=== PATIENT | female | born 1995 | race African-American/Black ===

== ENCOUNTER 2018-03-18 13:19 | Emergency (ER) | payer OTHER ==
[~2018-03-18] VITALS: Ht 165.1 cm; Wt 61.2 kg
[2018-03-18 13:26] VITALS: BP 117/90
[2018-03-18] MEDS ORDERED: Morphine Sulfate 4mg/ml Inj (IV USE ONLY) IVP ONE (13:30)
[2018-03-18] MEDS ORDERED: Isovue-300 100ml vial INJ PRN (13:30)
[2018-03-18] MEDS ORDERED: Sodium Chloride 500ML 500 ML IV ONE (13:30)
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
[2018-03-18 13:58] LABS: BASOPHILS % (AUTO) 0.5 % (0.0-2.0); HEMATOCRIT 42.8 % (37.0-47.0); HEMOGLOBIN 14.2 G/DL (12.0-16.0); LYMPHOCYTES % (AUTO) 34.1 % (20.0-45.0); MEAN CORPUSCULAR VOLUME 87 FL (80-99); MONOCYTES % (AUTO) 9.1 % (1.0-10.0); NEUTROPHILS % (AUTO) 54.3 % (45.0-75.0); PLATELET COUNT 225 K/UL (150-450); RED BLOOD COUNT 4.93 M/UL (4.20-5.40); RED CELL DISTRIBUTION WIDTH 11.3 % (11.6-14.8); WHITE BLOOD COUNT 7.6 K/UL (4.8-10.8)
[2018-03-18 14:01] LABS: ANION GAP 7 mmol/L (5-15); BLOOD UREA NITROGEN 10 mg/dL (7-18); CALCIUM 9.1 MG/DL (8.5-10.1); CARBON DIOXIDE 27 MMOL/L (21-32); CHLORIDE 106 MMOL/L (98-107); CREATININE 0.6 MG/DL (0.55-1.30); POTASSIUM 3.6 MMOL/L (3.5-5.1); SODIUM 139 MMOL/L (136-145)
[2018-03-18 14:14] LABS: ALANINE AMINOTRANSFERASE 16 U/L (12-78); ALBUMIN 3.7 G/DL (3.4-5.0); ALBUMIN/GLOBULIN RATIO 1.1 (1.0-2.7); ALKALINE PHOSPHATASE 83 U/L (46-116); ASPARTATE AMINO TRANSFERASE 14 U/L (15-37); BILIRUBIN,TOTAL 0.3 MG/DL (0.2-1.0); CKMB < 0.5 NG/ML (0.0-3.6); CREATINE KINASE 43 U/L (26-308)
[2018-03-18] MEDS ORDERED: fentaNYL 100 mcg/2 mL IV ONE ×2 (14:45→17:15)
[2018-03-18 16:34] VITALS: BP 121/87
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
[2018-03-18] MEDS ORDERED: ROBAXIN500 MG PO (17:16)
[2018-03-18] MEDS ORDERED: TRAMADOL HCL50 MG ORAL (17:16)
[2018-03-18] MEDS ORDERED: IBUPROFEN600 MG ORAL (17:16)
[2018-03-18 18:01] VITALS: BP 119/83
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
--- NOTE | 2018-03-19 19:55 | Cardiology Report ---
APPROVED REPORT EKG Measurement Heart [id number] ME [id number] [id number] Normal sinus rhythm Normal ECG
== END 2018-03-18 18:02 | disposition home or self-care (01) ==
LOC: EDBD 13:19 → EMR 13:48
DX: S20.219A Contusion of unspecified front wall of thorax, initial encounter (principal); S30.1XXA Contusion of abdominal wall, initial encounter; S80.02XA Contusion of left knee, initial encounter; S60.222A Contusion of left hand, initial encounter; V43.52XA Car driver injured in collision with other type car in traffic accident, initial encounter; Y92.410 Unspecified street and highway as the place of occurrence of the external cause
CPT/HCPCS: 36415; 71045; 71260; 73130; 73552; 73562; 74177; 80053; 81025; 82550; 82553; 83690; 85025; 93005; 96374; 96375; 96376; 99284; J2270; J2405; J3010; J7040; Q9967